=== PATIENT | female | born 1940 | race Caucasian/White ===

== ENCOUNTER 2017-07-24 09:29 | Emergency (ER) | payer MEDICARE, BC ==
[2017-07-24 11:09] VITALS: BP 118/56
--- NOTE | 2017-07-24 11:53 | UC ---
Throat Pain/Nasal Stephan HPI - HPI Summary HPI Summary: In mid-June developed very severe sore throat for 2 days, pain got better but then had mucus congestion in throat for weeks that gradually improved until 4-5 days ago. Now has dry nighttime cough, facial pain and pain in teeth. Minimal blowing of nose, denies fever or trouble breathing. - History of Current Complaint Chief Complaint: UCGeneralIllness Stated Complaint: CONGESTED, HEADACHE Time Seen by Provider: 07/24/17 11:37 Hx Obtained From: Patient ?: No Onset/Duration: Gradual Onset, Lasting Days Severity: Mild Pain Intensity: 2 Cough: Nonproductive Associated Signs & Symptoms: Positive: Sinus Discomfort. Negative: Wheezing, Hoarseness Related History: T & A - Allergies/Home Medications Allergies/Adverse Reactions: Allergies Allergy/AdvReac Type Severity Reaction Status Date / Time No Known Allergies Allergy Verified 07/24/17 11:08 Home Medications: Home Medications Acetaminophen [Acetaminophen Extra Strength] 2 tab PO DAILY PRN 07/24/17 [ History Confirmed 07/24/17] Guaifenesin/Dextromethorphan [Robitussin Cough-Chest Dm Liq] 10 ml PO Q4HR PRN 07/24/17 [History Confirmed 07/24/17] Levothyroxine TAB* [Synthroid TAB*] 77 mcg PO DAILY 07/24/17 [History Confirmed 07/24/17] Multivit-Minerals/Folic Acid [Women's Multivitamin Gummies] 1 tab PO DAILY 07/24 [History Confirmed 07/24/17] Timolol 0.25% OPHTH.SOLN* [Timoptic Ophth.soln 0.25%*] 1 drop LEFT EYE DAILY 10/06 [History Confirmed 07/24/17] PMH/Surg Hx/FS Hx/Imm Hx Endocrine History: Hypothyroidism Other History Of: Anticoagulant Therapy - R/t RTHR - Surgical History Surgical History: Yes Surgery Procedure, Year, and Place: 1967 AND 1973 RIGHT LEG VARICOSE VEIN SURGERY, [place]. 1977 HYSTERECTOMY, [facility] [place]. 1991 REMOVAL OF BILATERAL OVARIES, [facility] [place]. 2009 BILATERAL CATARACT SURGERY, [facility]. 03/2012 Rt TOTAL HIP - Family History Known Family History: Positive: Hypertension - Social History Lives: Alone Alcohol Use: None Substance Use Type: None Smoking Status (MU): Never Smoked Tobacco - Immunization History Most Recent Tetanus Shot: Up to date Review of Systems Constitutional: Negative Skin: Negative Eyes: Negative ENT: Dental Pain, Sore Throat, Sinus Pain/Tenderness Respiratory: Cough Cardiovascular: Negative Gastrointestinal: Negative Genitourinary: Negative Motor: Negative Neurovascular: Negative Musculoskeletal: Negative Neurological: Negative Psychological: Negative Is Patient Immunocompromised?: No All Other Systems Reviewed And Are Negative: Yes Physical Exam Triage Information Reviewed: Yes Appearance: Well-Appearing, No Pain Distress, Well-Nourished Vital Signs: Initial Vital Signs Temp 97.4 F 07/24/17 11:04 Pulse 73 07/24/17 11:04 Resp 18 07/24/17 11:04 BP 118/56 07/24/17 11:04 Pulse Ox 98 07/24/17 11:04 Vital Signs Reviewed: Yes Eye Exam: Normal Eyes: Positive: Conjunctiva Clear ENT: Positive: Hearing grossly normal, Pharynx normal, TM bulging - bilat -- translucent, good LM, aguilera, Other - normal vocal resonance. Negative: Nasal congestion, Nasal drainage, TM dull, TM red, Hoarse voice Dental Exam: Normal Neck exam: Normal Neck: Positive: Supple Respiratory Exam: Normal Respiratory: Positive: Chest non-tender, Lungs clear, Normal breath sounds, No respiratory distress, No accessory muscle use Cardiovascular Exam: Normal Cardiovascular: Positive: RRR, No Murmur Musculoskeletal Exam: Normal Neurological Exam: Normal Psychological Exam: Normal Skin Exam: Normal Throat Pain/Nasal Course/Dx - Differential Dx/Diagnosis Provider Diagnoses: sinusitis Discharge - Discharge Plan Condition: Stable Disposition: HOME Prescriptions: Cetirizine* [ZyrTEC 10 MG TAB*] 10 mg PO DAILY #30 tab Mometasone NASAL (NF) [Nasonex (NF)] 1 spray BOTH NARES BID #1 nasal.spr Patient Education Materials: Sinusitis (ED) Referrals: Jordyn Cage MD [Primary Care Provider] - Additional Instructions: As we discussed, you do not have any significant bacterial signs with your illness. I expect you to see some improvement within a few days. If not, please see Dr. Cage's office for follow-up. If you develop fever, trouble breathing , or facial swelling at any time please come back right away.
== END 2017-07-24 12:05 | disposition home or self-care (01) ==
LOC: UCEAST 09:29
DX: J32.9 Chronic sinusitis, unspecified (principal); E03.9 Hypothyroidism, unspecified; Z79.01 Long term (current) use of anticoagulants; Z90.710 Acquired absence of both cervix and uterus; Z90.722 Acquired absence of ovaries, bilateral; Z96.641 Presence of right artificial hip joint; Z98.42 Cataract extraction status, left eye; Z98.41 Cataract extraction status, right eye
CPT/HCPCS: 99212; G0463

== ENCOUNTER 2018-11-30 20:41 | Emergency (ER) | payer MEDICARE, BC ==
[2018-11-30 20:49] VITALS: BP 125/68
--- NOTE | 2018-11-30 21:40 | UC ---
UC General HPI - HPI Summary HPI Summary: RN notes - C/O CONSTIPATION SINCE 11/28/18. PT HAS TRIED DIFFERENT LAXATIVES WITHOUT RELIEF. LAST NORMAL BM WAS 11/27/18; STATES SHE IS "LEAKING" STOOL NOW. Pleasant 78 yo female c/o 4 days severe, unrelenting obstipation. No fever / chills. No n/v. No melena / brbpr. No urinary c/o's. No hx of similar, no recent medication change. Thinks may have not hydrated nor eaten well, but inciting cause unclear. Pain perianal. - History of Current Complaint Chief Complaint: UCGI Stated Complaint: CONSTIPATION Time Seen by Provider: 11/30/18 21:39 Hx Obtained From: Patient Pain Intensity: 4 - Allergy/Home Medications Allergies/Adverse Reactions: Allergies Allergy/AdvReac Type Severity Reaction Status Date / Time No Known Allergies Allergy Verified 11/30/18 20:49 PMH/Surg Hx/FS Hx/Imm Hx Previously Healthy: Yes Other History Of: Anticoagulant Therapy - R/t RTHR - Surgical History Surgical History: Yes Surgery Procedure, Year, and Place: 1967 AND 1973 RIGHT LEG VARICOSE VEIN SURGERY, [place]. [place] [facility] [place] [facility] [place] 2009 BILATERAL CATARACT SURGERY, [facility]. 03/2012 Rt TOTAL HIP - Family History Known Family History: Positive: Hypertension - Social History Alcohol Use: None Substance Use Type: None Smoking Status (MU): Never Smoked Tobacco - Immunization History Most Recent Tetanus Shot: Up to date Review of Systems All Other Systems Reviewed And Are Negative: Yes Constitutional: Positive: Negative Skin: Positive: Other - see hpi Eyes: Positive: Negative ENT: Positive: Negative Respiratory: Positive: Negative Cardiovascular: Positive: Negative Gastrointestinal: Positive: Other - see hpi Genitourinary: Positive: Negative Motor: Positive: Negative Neurovascular: Positive: Negative Musculoskeletal: Positive: Negative Neurological: Positive: Negative Psychological: Positive: Negative Is Patient Immunocompromised?: No Physical Exam Triage Information Reviewed: Yes Appearance: Well-Nourished, Other: - NAD but uncomfortable with exam Vital Signs: Initial Vital Signs Temp 99.2 F 11/30/18 20:45 Pulse 70 11/30/18 20:45 Resp 16 11/30/18 20:45 BP 125/68 11/30/18 20:45 Pulse Ox 100 11/30/18 20:45 Vital Signs Reviewed: Yes Eye Exam: Normal - grossly nad ENT Exam: Normal Neck exam: Normal Respiratory Exam: Normal - RR normal, no tachypnea, no dyspnea Cardiovascular Exam: Normal - HR regular, nondiaphoretic. good color Abdominal Exam: Other - distended, + bs, no r/g. See MDM Musculoskeletal Exam: Normal - gait slow, steady Neurological Exam: Normal - grossly nonfocal, detailed not done Psychological Exam: Normal - conversing easily and appropriately Course/Dx - Course Course Of Treatment: Perianal tender, small hemorrhoid incidentally noted. Attempted disimpaction, but to no avail. Stool brown, soft. No melena. Discomfort improved with topical 2% viscous lidocaine KUB ++ stool, reviewed with pt. Will go to ED for further eval / tx. Aware that sx may take a long time to resolve. Declines EMS. will take her POV. She declines my offer to speak with her about her condition. - Diagnoses Provider Diagnosis: Obstipation, Fecal impaction, Abdominal pain Discharge - Sign-Out/Discharge Documenting (check all that apply): Patient Departure All imaging exams completed and their final reports reviewed: No - Discharge Plan Condition: Guarded Disposition: HOME-RECOMMEND TO ED Patient Education Materials: Abdominal Pain (ED), Fecal Impaction (ED), Obstipation (ED) Referrals: Jordyn Cage MD [Primary Care Provider] - Additional Instructions: Please go to the Emergency Department. Stop and call [phone] en route, if worse or new problems. - Billing Disposition and Condition Condition: GUARDED Disposition: Home-Recommend to ED
[2018-11-30] MEDS ORDERED: Lidocaine 2% VISCOUS* 15 ML UDC ONE (21:51)
== END 2018-11-30 22:16 | disposition home health service (06) ==
LOC: UCEAST 20:41
DX: K59.00 Constipation, unspecified (principal); K56.41 Fecal impaction; R10.9 Unspecified abdominal pain; Z79.01 Long term (current) use of anticoagulants
CPT/HCPCS: 74018; 99212; G0463

== ENCOUNTER 2018-11-30 22:42 | Emergency (ER) | payer BC, MEDICARE ==
--- NOTE | 2018-11-30 23:38 | ED ---
GI/ HPI - HPI Summary HPI Summary: This patient is an 78 year old female presenting to [facility] with a chief complaint of constipation. The patient has not had a normal BM since 4 days ago. She denies abdominal pain. The patient states she has taken Mirolax and stool softener that have not worked. The patient was referred by [facility] [place] with a dx of fecal impaction to disimpact her bowel. - History of Current Complaint Chief Complaint: EDAbdPain Time Seen by Provider: 11/30/18 23:32 Stated Complaint: ABD PAIN PER PT Hx Obtained From: Patient Onset/Duration: Started Days Ago Severity: Moderate Current Severity: Moderate Pain Intensity: 6 - Allergy/Home Medications Allergies/Adverse Reactions: Allergies Allergy/AdvReac Type Severity Reaction Status Date / Time No Known Allergies Allergy Verified 11/30/18 20:49 PMH/Surg Hx/FS Hx/Imm Hx Endocrine/Hematology History: Reports: Hx Anticoagulant Therapy - R/t RTHR, Hx Blood Transfusions - After RTHR, Hx Thyroid Disease - Hypothyroidism Denies: Hx Blood Disorders, Hx Bone Marrow Disease, Hx Diabetes, Hx Systemic Lupus Erythematosus, Hx Sickle Cell Disease, Hx Anemia, Hx Unexplained Bleeding Cardiovascular History: Denies: Hx Hypertension, Hx Pacemaker/ICD Respiratory History: Denies: Hx Asthma, Hx Chronic Obstructive Pulmonary Disease (COPD) History: Denies: Hx Renal Disease Musculoskeletal History: Reports: Hx Arthritis - RIGHT HIP, Hx Tendonitis - RIGHT WRIST 2 YEARS AGO Denies: Hx Rheumatoid Arthritis, Hx Osteoporosis Sensory History: Reports: Hx Cataracts - BILATERAL, Hx Contacts or Glasses, 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 Denies: Hx Eye Injury, Hx Eye Prosthesis, Hx Macular Degeneration, Hx Vision Problem, Hx Deafness, Hx Hearing Aid, Hx Hearing Problem, Other Sensory Impairments Opthamlomology History: Reports: Hx Cataracts - BILATERAL, Hx Contacts or Glasses, 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 Denies: Hx Eye Injury, Hx Eye Prosthesis, Hx Macular Degeneration, Hx Vision Problem, Other Sensory Impairments Neurological History: Denies: Hx Dementia, Hx Developmental Delay, Hx Headaches, Hx Migraine, Hx Seizures, Hx Spinal Cord Injury, Hx Transient Ischemic Attacks (TIA), Other Neuro Impairments/Disorders Psychiatric History: Reports: Hx Anxiety - Occasional, PRN Xanax Denies: Hx Attention Deficit Hyperactivity Disorder, Hx Eating Disorder, Hx Depression, Hx Panic Disorder, Hx Post Traumatic Stress Disorder, Hx Inpatient Treatment, Hx Community Mental Health Tx, Hx Schizophrenia, Hx Bipolar Disorder , Hx Suicide Attempt, Hx Substance Abuse, Other Psychiatric Issues/Disorders - Cancer History Hx Chemotherapy: No Hx Radiation Therapy: No - Surgical History Surgery Procedure, Year, and Place: 1967 AND 1973 RIGHT LEG VARICOSE VEIN SURGERY, [place]. 1977 HYSTERECTOMY, [facility] [place]. 1991 REMOVAL OF BILATERAL OVARIES, [facility] [place]. 2009 BILATERAL CATARACT SURGERY, [facility]. 03/2012 Rt TOTAL HIP Hx Anesthesia Reactions: No Infectious Disease History: No Infectious Disease History: Denies: Hx Clostridium Difficile, Hx Hepatitis, Hx Human Immunodeficiency Virus (HIV), Hx Shingles, Hx Tuberculosis, Traveled Outside the [place] in Last 30 Days - Family History Known Family History: Positive: Hypertension - Social History Alcohol Use: None Substance Use Type: Reports: None Hx Tobacco Use: No Smoking Status (MU): Never Smoked Tobacco Review of Systems Constitutional: Negative Negative: Abdominal Pain, Vomiting, Diarrhea, Nausea All Other Systems Reviewed And Are Negative: No Physical Exam - Summary Physical Exam Summary: Appearance: Well-appearing, Well-nourished, lying in bed comfortably Skin: Warm, dry, no obvious rash Eyes: sclera anicteric, no conjunctival pallor ENT: mucous membranes moist, pharynx appears normal Neck: Supple, nontender Respiratory: Clear to auscultation, no signs of respiratory distress Cardiovascular: Normal S1, S2. No murmurs. Normal distal pulses in tibial and radial bilaterally. Abdomen: Soft, nontender, normal active bowel sounds present Musculoskeletal: Normal, Strength/ROM Intact Neurological: A&Ox3, awake and alert, mentation is normal, speech is fluent and appropriate Psychiatric: affect is normal, does not appear anxious or depressed Rectal: Csr Cher. Unremarkable exam. Triage Information Reviewed: Yes Vital Signs On Initial Exam: Initial Vitals Temp Pulse Resp BP Pulse Ox 99.1 F 63 18 148/120 98 11/30/18 22:51 11/30/18 22:51 11/30/18 22:51 11/30/18 22:51 11/30/18 22:51 Vital Signs Reviewed: Yes Diagnostics - Vital Signs Vital Signs Temp Pulse Resp BP Pulse Ox 11/30/18 22:51 99.1 F 63 18 148/120 98 - Laboratory Lab Statement: Any lab studies that have been ordered have been reviewed, and results considered in the medical decision making process. GIGU Course/Dx - Course Course Of Treatment: This patient is an 78 year old female presenting to [facility] with a chief complaint of constipation. On rectal exam soft brown stool is present. She was not felt to require manual disimpaction. Patient was given an enema for her constipation and her symptoms resolved. A plan for discharge was discussed with the patient and she was agreeable with this plan. - Diagnoses Provider Diagnoses: Constipation Discharge - Sign-Out/Discharge Documenting (check all that apply): Patient Departure - Discharge Patient Received Moderate/Deep Sedation with Procedure: No - Discharge Plan Condition: Good Disposition: HOME Patient Education Materials: Constipation (ED) Referrals: Jordyn Cage MD [Primary Care Provider] - 3 Days (if not better) - Billing Disposition and Condition Condition: GOOD Disposition: Home - Attestation Statements Document Initiated by Herberth: Yes Documenting Scribe: Florentino Morales Provider For Whom Herberth is Documenting (Include Credential): Sawyer Guerra MD Scribe Attestation: Florentino Gill scribed for Sawyer Guerra MD on 12/01/18 at 0434. Scribe Documentation Reviewed: Yes Provider Attestation: The documentation as recorded by the Florentino phelan accurately reflects the service I personally performed and the decisions made by , Sawyer Guerra MD Status of Scribe Document: Viewed
[2018-11-30] MEDS ORDERED: PEG 3000 GI LAVAGE* 1 GALLON PO ONE (23:41)
[2018-11-30] MEDS ORDERED: Sodium Phosphate ADULT ENEMA* 118 ml bottle PR ONE (23:42)
[2018-12-01 00:38] VITALS: BP 152/78
== END 2018-12-01 00:38 | disposition home or self-care (01) ==
LOC: ED 22:42
DX: K59.00 Constipation, unspecified (principal); Z79.01 Long term (current) use of anticoagulants; E03.9 Hypothyroidism, unspecified
CPT/HCPCS: 99283; A9270-GY

== ENCOUNTER 2023-05-21 00:44 | Observation (INO) ==
[2023-05-21] MEDS ORDERED: Iohexol 350 (CONTRAST) 500 ML MDV IV ONE (01:20)
[2023-05-21 01:23] LABS: ABS Eosinophils 0.1 10^3/uL (0.0-0.5); ABS Lymphocytes 0.9 10^3/uL (1.0-4.8); ABS Monocytes 0.4 10^3/uL (0.0-0.9); ABS Nucleated RBC 0.01 10^3/ul; Eosinophil % 3.2 %; Hematocrit 37.3 % (35-45); Hemoglobin 12.6 g/dL (11.5-14.3); Lymphocyte % 27.3 %; Mean Corpuscular Hemoglobin 32.3 pg (27-33); Mean Corpuscular Hgb Conc 33.9 g/dL (31-36); Mean Corpuscular Volume 95.2 fL (80-97); Nucleated Red Blood Cells % 0.1 %/100WBC (0.0-0.8); Platelet Count 240 10^3/uL (150-450); Red Blood Count 3.91 10^6/uL (3.63-4.92); Red Cell Distribution Width 12.6 % (12-17); White Blood Count 3.4 10^3/uL (3.8-11.8)
[2023-05-21 01:31] LABS: Activated Partial Thrombo Time 26.9 seconds (26.0-38.0); INR 1.03 (0.83-1.13)
[2023-05-21 01:36] LABS: Potassium 4.1 mmol/L (3.5-5.0)
[2023-05-21 01:37] LABS: Albumin 4.2 g/dL (3.2-5.2); Albumin/Globulin Ratio 1.6 (1-3); Calcium 9.6 mg/dL (8.6-10.3); Creatinine, Serum 0.78 mg/dL (0.51-0.95); Globulin 2.6 g/dL (2-4); Total Bilirubin 0.5 mg/dL (0.2-1.0); Total Protein 6.8 g/dL (6.4-8.9); eGFR CKD-EPI 74.4 (>60)
[2023-05-21 02:09] LABS: Urine Appearance Clear; Urine Bilirubin Negative (Negative); Urine Blood Negative (Negative); Urine Color Straw; Urine Glucose Negative (Negative); Urine Ketones Negative (Negative); Urine Nitrite Negative (Negative); Urine Protein Negative (Negative); Urine Specific Gravity 1.021 (1.002-1.030); Urine Urobilinogen Negative (Negative)
[2023-05-21 02:28] LABS: High Sensitivity Troponin 1 Hr 16 pg/mL (<15)
[2023-05-21 02:45] LABS: Magnesium 2.2 mg/dL (1.9-2.7)
[2023-05-21 04:43] LABS: High Sensitivity Troponin 3 Hr 13 pg/mL (<15)
[2023-05-21] MEDS ORDERED: Senna TAB 8.6 mg TAB PO PRN (04:55)
[2023-05-21] MEDS ORDERED: Polyethylene Glycol 3350 17 GM PACKET PO PRN (04:55)
[2023-05-21] MEDS ORDERED: Ondansetron 4 mg VIAL 2 MG/ML 2 ml VIAL IV PRN (04:55)
[2023-05-21 06:19] LABS: HDL Cholesterol 58.8 mg/dL
[2023-05-21] MEDS: Enoxaparin 40 MG/0.4 ML SYR SUBCUT SCH (09:47)
[2023-05-21] MEDS ORDERED: Brimonidine/Timolol 0.2%/0.5% OPTH(NF) SOL 5 ML BOTH EYES SCH (12:00)
[2023-05-21] MEDS ORDERED: Brimonidine/Timolol 0.2%/0.5% OPTH(NF) SOL 5 ML LEFT EYE SCH (14:00)
[2023-05-21] MEDS: Dorzolamide 2% OPTH (NF) 10 ML BTL LEFT EYE SCH ×2 (14:22→21:04)
[2023-05-21] MEDS: Brimonidine/Timolol 0.2%/0.5% OPTH(NF) SOL 5 ML LEFT EYE SCH (21:01)
[2023-05-22] MEDS: LEVOTHYROXINE 75 MCG PO SCH (05:48)
[2023-05-22] MEDS: Enoxaparin 40 MG/0.4 ML SYR SUBCUT SCH (08:55)
[2023-05-22] MEDS: Dorzolamide 2% OPTH (NF) 10 ML BTL LEFT EYE SCH ×3 (08:55→20:13)
[2023-05-22] MEDS: Brimonidine/Timolol 0.2%/0.5% OPTH(NF) SOL 5 ML LEFT EYE SCH ×2 (08:55→20:13)
[2023-05-23] MEDS: LEVOTHYROXINE 75 MCG PO SCH (05:04)
[2023-05-23 06:31] LABS: ABS Lymphocytes 0.7 10^3/uL (1.0-4.8); ABS Monocytes 0.6 10^3/uL (0.0-0.9); ABS Neutrophils 1.7 10^3/uL (1.5-7.6); Calcium 8.9 mg/dL (8.6-10.3); Creatinine, Serum 0.66 mg/dL (0.51-0.95); Eosinophil % 0.2 %; Hematocrit 33.3 % (35-45); Hemoglobin 11.3 g/dL (11.5-14.3); Lymphocyte % 22.6 %; Magnesium 2.3 mg/dL (1.9-2.7); Mean Corpuscular Hemoglobin 32.2 pg (27-33); Mean Corpuscular Volume 94.7 fL (80-97); Mean Platelet Volume 7.8 fL (7.5-11.2); Nucleated Red Blood Cells % 0.1 %/100WBC (0.0-0.8); Platelet Count 187 10^3/uL (150-450); Potassium 4.4 mmol/L (3.5-5.0); Red Blood Count 3.52 10^6/uL (3.63-4.92); Red Cell Distribution Width 12.4 % (12-17); eGFR CKD-EPI 85.9 (>60)
[2023-05-23 09:53] VITALS: BP 119/80
[2023-05-23] MEDS: Dorzolamide 2% OPTH (NF) 10 ML BTL LEFT EYE SCH ×2 (10:45→15:57)
[2023-05-23] MEDS: Brimonidine/Timolol 0.2%/0.5% OPTH(NF) SOL 5 ML LEFT EYE SCH (10:46)
[2023-05-23] MEDS ORDERED: Regadenoson 0.4 MG/5 ML SYRINGE ONE (13:47)
[2023-05-23] MEDS ORDERED: Aminophylline 25 MG/ML VIAL ONE (13:47)
== END 2023-05-23 18:17 | disposition home or self-care (01) ==
LOC: ED 00:44 → EDHOLD 00:44 → SUATTDRO 04:55 → MEDTELE 05:28
PROVIDERS: ADMIT Hospitalist; ATTEND Internal Medicine